=== PATIENT | female | born 1995 | race Caucasian/White ===

== ENCOUNTER 2020-11-11 11:12 | Outpatient (REF) | payer BC, SELFPAY | END 2020-11-11 11:13 | disposition home or self-care (01) | LOC: NCHCN 11:12 | PROVIDERS: PCP Physician Assistant; Visit Provider Physician Assistant | DX: R30.0 Dysuria (principal) | CPT/HCPCS: 87077; 87086; 87186 ==

== ENCOUNTER 2021-02-07 12:37 | Outpatient (REF) | payer OTHER, SELFPAY ==
[2021-02-07 19:34] LABS: Bilirubin Negative (Negative); Blood Negative (Negative); Clarity Clear (Clear); Glucose 100 mg/dL (Negative); Ketones Negative (Negative); Leukocyte Esterase Trace (Negative); Nitrite Positive (Negative); Urobilinogen 0.2 EU/dL (Up TO 0.2)
[2021-02-07 20:03] LABS: Bacteria Few HPF (Negative); C & S Indicated? C&S Done As Ordered; Crystals Negative HPF (Negative); Epithelial Cells Few HPF (Negative); Mucus Negative (Negative); Other Cells Rare Renal (Negative)
== END 2021-02-07 12:38 | disposition home or self-care (01) ==
LOC: NCHCN 12:37
PROVIDERS: PCP Physician Assistant; Visit Provider Nurse Practitioner Family
DX: R30.0 Dysuria (principal)
CPT/HCPCS: 81003; 81015; 87086

== ENCOUNTER 2023-06-05 11:45 | Outpatient (REF) | payer OTHER, SELFPAY | END 2023-06-05 11:46 | disposition home or self-care (01) | LOC: NCHCN 11:45 | PROVIDERS: PCP Physician Assistant; Visit Provider Nurse Practitioner Family | DX: R39.9 Unspecified symptoms and signs involving the genitourinary system (principal) | CPT/HCPCS: 87077; 87086; 87186 ==

== ENCOUNTER 2025-05-25 13:56 | Outpatient (REF) | payer OTHER, SELFPAY ==
[2025-05-25 19:29] LABS: HCT 35.9 % (36.0-46.0); HGB 11.7 g/dL (11.2-15.7); MCH 29.9 pg (27.0-33.0); MCHC 32.6 % (32.0-36.0); MCV 92 fL (80-95); MPV 9.4 fL (8.0-11.0); Platelet Count 292 10^3/uL (130-400); RBC 3.91 10^6/uL (3.93-5.22); RDW 12.7 % (11.7-14.6); RDW-SD 42.5 fL; WBC 8.17 10^3/uL (4.4-10.8)
[2025-05-25 19:57] LABS: Iron 43 ug/dL (50-170); Total Iron Binding Capacity 345 ug/dL (250-425); Transferrin Sat 12 % (15-50)
[2025-05-25 21:21] LABS: Ferritin 13 ng/mL (7-271)
== END 2025-05-25 13:57 | disposition home or self-care (01) ==
LOC: NCHCN 13:56
PROVIDERS: PCP Physician Assistant; Visit Provider Physician Assistant
DX: Z86.2 Personal history of diseases of the blood and blood-forming organs and certain disorders involving the immune mechanism (principal)
CPT/HCPCS: 85027; 82728; 83540; 83550